=== PATIENT | female | born 1985 | race Hispanic/Latino ===

== ENCOUNTER 2022-09-28 13:09 | Emergency (ER) | payer OTHER ==
[~2022-09-28] VITALS: Ht 152.4 cm; Wt 71.2 kg
[2022-09-28] MEDS ORDERED: SODIUM CHLORIDE 0.9% 1000ML 1,000 ML IV STA (14:12)
[2022-09-28 14:24] LABS: BASOPHILS % 0.4 % (0.0-1.0); EOSINOPHILS # (AUTO) 0.1 (0.0-0.4); EOSINOPHILS % 1.5 % (0.0-6.0); HEMATOCRIT 45.9 % (34.2-44.1); LYMPHOCYTES # (AUTO) 1.7 (1.0-3.2); LYMPHOCYTES % 22.7 % (18.0-39.1); MEAN CORPUSCULAR HEMOGLOBIN 26.1 pg (28-32); MEAN CORPUSCULAR HGB CONC 30.5 g/dL (31-35); MEAN CORPUSCULAR VOLUME 85.5 fL (81-99); MONOCYTES # (AUTO) 0.5 (0.2-0.8); MONOCYTES % 6.8 % (4.4-11.3); NEUTROPHILS # (AUTO) 5.1 (2.1-6.9); NEUTROPHILS % 68.3 % (38.7-80.0); PLATELET COUNT 377 x10e3/uL (140-360); RED BLOOD COUNT 5.37 x10e6/uL (3.6-5.1); RED CELL DISTRIBUTION WIDTH 13.2 % (11.7-14.4)
[2022-09-28] MEDS ORDERED: ONDANSETRON HCL INJ 2MG/ML 2ML 2 MG/ML VIAL IV ONE (14:30)
[2022-09-28 14:36] LABS: INR 1.14; PARTIAL THROMBOPLASTIN TIME 38.5 seconds (23.8-35.5); PROTHROMBIN TIME 14.8 seconds (11.9-14.5)
[2022-09-28 14:50] LABS: CLARITY,URINE CLEAR (CLEAR); COLOR,URINE YELLOW (YELLOW)
[2022-09-28 14:51] LABS: KETONES,URINE >=160 (NEGATIVE); LEUKOCYTE ESTERASE ,URINE NEGATIVE (NEGATIVE); NITRITE,URINE NEGATIVE (NEGATIVE); PROTEIN,URINE DIPSTICK 2+ (NEGATIVE); URINE UROBILINOGEN 0.2 mg/dL (0.2 - 1)
[2022-09-28 14:56] LABS: ALANINE AMINOTRANSFERASE 35 IU/L (0-55); ALBUMIN 4.3 g/dL (3.5-5.0); ALBUMIN/GLOBULIN RATIO 0.9 (0.8-2.0); ALKALINE PHOSPHATASE 62 IU/L (40-150); BLOOD UREA NITROGEN 12 mg/dL (7-26); BUN/CREATININE RATIO 13 (6-25); CALCIUM 9.5 mg/dL (8.4-10.2); CARBON DIOXIDE 14 mmol/L (22-29); CHLORIDE 103 mmol/L (98-107); GLUCOSE 82 mg/dL (74-118); MAGNESIUM 1.7 MG/DL (1.3-2.1); SODIUM 135 mmol/L (136-145)
[2022-09-28 15:00] LABS: WBC,URINE (MAN) 0-5 /HPF (0-5)
[2022-09-28 15:01] LABS: BACTERIA,URINE FEW /HPF; EPITHELIAL CELLS,URINE MODERATE /LPF; RBC,URINE 0-5 /HPF (0-5)
[2022-09-28] MEDS ORDERED: IOPAMIDOL 370 MG/ML 100 ML INFUS..BTL INJ ONE (15:25)
[2022-09-28] MEDS ORDERED: ONDANSETRON ODT4 MG PO (18:28)
[2022-09-28] MEDS ORDERED: DICYCLOMINE HCL20 MG PO (18:28)
== END 2022-09-28 18:36 | disposition home or self-care (01) ==
LOC: MERGE 13:26 → UNMERGE 13:26 → ER 13:26
DX: G89.18 Other acute postprocedural pain (principal); R11.2 Nausea with vomiting, unspecified; R10.30 Lower abdominal pain, unspecified; Z98.84 Bariatric surgery status
CPT/HCPCS: 36415; 74177; 80053; 81001; 83735; 84702; 85025; 85610; 85730; 87086; 99284; C9113; J2405; J7030; Q9967